=== PATIENT | female | born 1960 ===

== ENCOUNTER 2017-07-28 00:35 | Inpatient (IN) | payer BC ==
[2017-07-27 14:54] LABS: INR 0.94
[2017-07-28] VITALS (12 sets, daily range): BP systolic 101–153; BP diastolic 49–79
[~2017-07-28] VITALS: Ht 166.4 cm; Wt 76.2 kg
[~2017-07-28 00:35] MED LIST: ASPI-757 PO; ATOR10TA65 PO; CELE-1 PO; DIA5 PO; HYDR-318 PO; IBUP800T37 PO; LEVO50TA86 PO; OXYC-823 PO; SERT-1 PO; TRAM-420 PO; TRAM-627 PO
--- NOTE | 2017-07-28 04:08 | LEVENE H&P ---
DATE OF ADMISSION: July 28, 2017 IDENTIFICATION/CHIEF COMPLAINT The patient is a 57-year-old woman with a chief complaint of right knee pain. HISTORY OF PRESENT ILLNESS The patient has a longstanding history of knee arthrosis that has become progressively painful and debilitating and refractory to conservative care. Surgery is indicated to relieve symptoms after failure of nonoperative measures. PAST MEDICAL HISTORY * Hypothyroidism. * Depression. PAST SURGICAL HISTORY Hip replacement operation. ALLERGIES She has no true drug allergies, but codeine causes nausea. CURRENT MEDICATIONS * Zoloft 50 mg p.o. daily. * Levothyroxine 50 mcg p.o. daily. * Atorvastatin 20 mg p.o. daily. * Various vitamins. FAMILY HISTORY Mother with heart disease and father with peripheral arterial disease. SOCIAL HISTORY Negative for tobacco and alcohol use. REVIEW OF SYSTEMS Otherwise negative. PHYSICAL EXAMINATION GENERAL: This is a well-developed, well-nourished female who appears stated age. HEENT: Normocephalic, atraumatic. NECK: Supple. LUNGS: Clear. HEART: Regular. ABDOMEN: Soft. ORTHOPEDIC EXAMINATION The right knee has an effusion present and is stiff at the end of range of motion. Gross stability is good. Extensor function is intact. Skin is in good condition. DIAGNOSTIC DATA Radiographs demonstrate end-stage knee arthritis. ASSESSMENT Right knee degenerative joint disease, progressively painful and refractory to conservative care. PLAN Per patient request, we are going to proceed with total knee arthroplasty. The nature of the procedure, the risks, benefits, the anticipated rehabilitative course were reviewed. Risks include, but are not limited to, , major medical or anesthetic complication, infection, neurovascular injury, blood transfusion, stiffness, scarring, fracture, tendon rupture, instability, implant loosening, migration or failure, persistent or recurrent pain or symptoms, need for additional surgery and other unforeseen. She understands and wishes to proceed. A signed permit is placed in the chart. No guarantees are given or implied. HOLLIE
[2017-07-28] MEDS: NORMOSOL R SOLN(*) 1000 ML BAG 1,000 ML IV PRN ×3 (07:41→09:48)
[2017-07-28] MEDS ORDERED: TRANEXAMIC AC 1000 MG/10ML SDV 1,000 MG in DEXTROSE 5% 50 ML BAG 50 ML IV ONE (09:15)
[2017-07-28] MEDS ORDERED: FAMOTIDINE 20 MG TAB PO ONE (09:15)
[2017-07-28] MEDS ORDERED: MIDAZOLAM 2 MG/2 ML VIAL IVP PRN (09:15)
[2017-07-28] MEDS ORDERED: ceFAZolin(*) 2GM/D5W 50ML 50 ML IVPB ONE (09:15)
[2017-07-28] MEDS ORDERED: cloNIDine EPIDUR INJ 100MCG/ML 40 MCG, ROPIVACAINE 0.5% 20 ML VIAL 25 ML, EPINEPHrine H... INJ ONE (09:15)
[2017-07-28] MEDS ORDERED: LIDOCAINE/SOD BICARB 8.4% SYR ID ONE (09:15)
[2017-07-28] MEDS ORDERED: fentaNYL CITR 100 MCG/2 ML AMP ONE (09:35)
[2017-07-28] MEDS ORDERED: LIDOCAINE MPF 1% 5 ML VIAL ONE (09:37)
[2017-07-28] MEDS ORDERED: ONDANSETRON 4 MG/2 ML VIAL ONE (09:37)
[2017-07-28] MEDS ORDERED: DEXAMETHASONE SOD PHOS 10MG/ML ONE (09:37)
[2017-07-28] MEDS ORDERED: ROCURONIUM BROM 10 MG/ML 10 ML ONE (09:37)
[2017-07-28] MEDS ORDERED: PROPOFOL EMUL(*) 10MG/ML 20 ML 20 ML ONE (09:37)
[2017-07-28] MEDS ORDERED: MORPHINE PF 5 MG/10 ML AMP ONE (09:41)
[2017-07-28] MEDS ORDERED: PHENYLEPHRINE/NS/PF 0.4MG/10ML ONE (10:20)
[2017-07-28] MEDS ORDERED: NS(*) 0.9% 100 ML BAG 100 ML ONE (10:22)
[2017-07-28] MEDS ORDERED: LACTATED RINGER 3000 ML BAG IR ONE (11:30)
[2017-07-28] MEDS ORDERED: diphenhydrAMINE 25 MG CAP PO PRN ×2 (12:35)
[2017-07-28] MEDS ORDERED: NORMOSOL R SOLN(*) 1000 ML BAG 1,000 ML IV PRN (12:35)
[2017-07-28] MEDS ORDERED: MAGNESIUM HYDROXIDE* 30ML UDCP PO PRN (12:35)
[2017-07-28] MEDS ORDERED: BENZOCAINE/MENTHOL 1 EACH LOZG PO PRN (12:35)
[2017-07-28] MEDS ORDERED: NALOXONE HCL 0.4 MG/ML VIAL IVP PRN (12:35)
[2017-07-28] MEDS ORDERED: FLUSH 10 ML SYR IVP PRN (12:35)
[2017-07-28] MEDS ORDERED: BISACODYL 10 MG SUPP PR PRN (12:35)
[2017-07-28] MEDS ORDERED: ZOLPIDEM TARTRATE 5 MG TAB PO PRN (12:35)
[2017-07-28] MEDS ORDERED: NALBUPHINE HCL 10 MG/ML AMP IVP PRN ×2 (12:35→12:50)
[2017-07-28] MEDS ORDERED: ONDANSETRON 4 MG/2 ML VIAL IVP PRN (12:35)
[2017-07-28] MEDS ORDERED: diphenhydrAMINE 50 MG/ML VIAL IVP PRN (12:35)
[2017-07-28] MEDS ORDERED: PROMETHAZINE 25 MG/ML 1 ML AMP IVP PRN (12:35)
[2017-07-28] MEDS ORDERED: ACETAMINOPHEN 325 MG TAB PO PRN (12:35)
[2017-07-28] MEDS ORDERED: METOCLOPRAMIDE 10 MG/2 ML SDV IVP PRN (12:35)
--- NOTE | 2017-07-28 13:05 | RADIOLOGY IMAGING REPORT ---
FACILITY: [facility] [place] PATIENT NAME: Essence Mcmillan : 1960 MR: [id number] V: [id number] EXAM DATE: ORDERING PHYSICIAN: SYMONE GE TECHNOLOGIST: [place] [facility] [place] Essence Mcmillan : 1960 Visit/Account:[id number] Date of Sevice: 07/28/2017 EXAMINATION: Right knee, 2 views 07/28/2017 12:07 PM HISTORY: S/P TKA, CHECK PLACEMENT COMPARISON: None available FINDINGS: Status post right TKA. Femoral and tibial components appear to be well seated and articul ating appropriately. Postoperative soft tissue gas and ventral cutaneous esha. IMPRESSION: Status post right TKA. Report Dictated By: Octavio Oneil MD at 07/28/2017 12:58 PM Report E-Signed By: Octavio Oneil MD at 07/28/2017 1:01 PM WSN:[email or web address]
[2017-07-28] MEDS: APAP/HYDROCODONE 325/7.5 TAB PO PRN ×3 (13:18→22:46)
[2017-07-28] MEDS: DIAZEPAM 5 MG TAB PO PRN ×2 (13:18→19:29)
--- NOTE | 2017-07-28 14:01 | Hospitalist Progress Note ---
Subjective Progress Notes Subjective No cp/sob. 100cc of EBL. 2000cc of crystalloid, TXA, and dexamethasone given intra-op. Physical Exam Vital Signs Date Time Temp Pulse Resp B/P (MAP) Pulse Ox O2 Delivery O2 Flow Rate FiO2 07/28/17 13:00 61 16 97 07/28/17 12:53 98.4 126/61 (82) Nasal Cannula 2.0 Intake and Output 07/29/17 07:00 Intake Total 3150 ml Balance 3150 ml Intake IV Total 3150 ml General Appearance: Alert, Awake Cardiovascular: Regular Rate and Rhythm Respiratory: Clear to Auscultation Extremities: No Edema Assessment and Plan Problems: (1) Status post knee replacement Status: Acute Assessment & Plan: No CV/pulmonary issues. The patient has no history of DVT/ PE. The patient will be on ASA 325 mg a day for 30 days for blood clot prevention. (2) Depression Status: Chronic Assessment & Plan: Continue chronic Zoloft. (3) Hypercholesteremia Status: Chronic Assessment & Plan: Continue chronic atorvastatin. (4) Hypothyroidism Status: Chronic Assessment & Plan: Continue chronic levothyroxine. Problem Qualifiers (1) Status post knee replacement: Laterality: right Qualified Codes: Z96.651 - Presence of right artificial knee joint EDI FAUSTIN MD Jul 28, 2017 14:01
[2017-07-28] MEDS: CELECOXIB 200 MG CAP PO SCH (16:22)
[2017-07-28] MEDS: ceFAZolin 1 GM VIAL IVP SCH (16:23)
[2017-07-28] MEDS ORDERED: ceFAZolin(*) 1 GM VIAL 1 GM in NS(*) 0.9% 100 ML ADDVANT BAG 100 ML IVPB SCH (17:00)
[2017-07-28] MEDS: SERTRALINE HCL 50 MG TAB PO SCH (20:44)
[2017-07-28] MEDS: ATORVASTATIN 10 MG TAB PO SCH (20:44)
[2017-07-29] MEDS: ceFAZolin 1 GM VIAL IVP SCH ×2 (01:25→08:36)
[2017-07-29] MEDS: DIAZEPAM 5 MG TAB PO PRN ×4 (01:25→20:52)
[2017-07-29] MEDS: APAP/HYDROCODONE 325/7.5 TAB PO PRN ×6 (03:07→23:52)
[2017-07-29] MEDS: LEVOTHYROXINE SOD 0.05 MG TAB PO SCH (07:21)
[2017-07-29] MEDS: CELECOXIB 200 MG CAP PO SCH ×2 (07:21→17:37)
[2017-07-29 07:24] VITALS: BP 129/69
--- NOTE | 2017-07-29 07:52 | Hospitalist Progress Note ---
Subjective Progress Notes Subjective No cp/sob. No concerns from patient or staff. Physical Exam Vital Signs Date Time Temp Pulse Resp B/P (MAP) Pulse Ox O2 Delivery O2 Flow Rate FiO2 07/29/17 07:24 98.1 58 16 129/69 (89) 93 Nasal Cannula 1.0 General Appearance: Alert, Awake, No Acute Distress Assessment and Plan Problems: (1) Status post knee replacement Status: Acute Assessment & Plan: No CV/pulmonary issues. The patient has no history of DVT/ PE. The patient will be on ASA 325 mg a day for 30 days for blood clot prevention. (2) Depression Status: Chronic Assessment & Plan: Continue chronic Zoloft. (3) Hypercholesteremia Status: Chronic Assessment & Plan: Continue chronic atorvastatin. (4) Hypothyroidism Status: Chronic Assessment & Plan: Continue chronic levothyroxine. Exam Sepsis Risk: No Definite Risk Problem Qualifiers (1) Status post knee replacement: Laterality: right Qualified Codes: Z96.651 - Presence of right artificial knee joint EDI FAUSTIN MD Jul 29, 2017 07:52
[2017-07-29] MEDS: ASPIRIN 325 MG TAB PO SCH (08:35)
[2017-07-29] MEDS ORDERED: SERTRALINE HCL 50 MG TAB PO SCH (09:00)
[2017-07-29] MEDS ORDERED: ATORVASTATIN 10 MG TAB PO SCH (09:00)
[2017-07-29 11:34] VITALS: BP 106/45
[2017-07-29 15:53] VITALS: BP 104/50
[2017-07-29] MEDS: SERTRALINE HCL 50 MG TAB PO SCH (20:52)
[2017-07-29] MEDS: ATORVASTATIN 10 MG TAB PO SCH (20:52)
[2017-07-29 21:18] VITALS: BP 125/60
[2017-07-30 03:04] VITALS: BP 127/51
[2017-07-30] MEDS: DIAZEPAM 5 MG TAB PO PRN ×4 (03:04→22:03)
[2017-07-30] MEDS: APAP/HYDROCODONE 325/7.5 TAB PO PRN ×5 (04:00→22:16)
[2017-07-30] MEDS: LEVOTHYROXINE SOD 0.05 MG TAB PO SCH (06:30)
[2017-07-30] MEDS ORDERED: DIA5 PO (07:52)
[2017-07-30] MEDS ORDERED: HYDR-4308 PO (07:54)
[2017-07-30] MEDS ORDERED: CELE-1 PO (07:54)
[2017-07-30 07:59] VITALS: BP 116/58
[2017-07-30] MEDS: ASPIRIN 325 MG TAB PO SCH (08:19)
[2017-07-30] MEDS: CELECOXIB 200 MG CAP PO SCH ×2 (08:20→15:50)
--- NOTE | 2017-07-30 08:54 | Hospitalist Progress Note ---
Subjective Progress Notes Subjective She reports doing fairly well. She only c/o surgical site pain. Physical Exam Vital Signs Date Time Temp Pulse Resp B/P (MAP) Pulse Ox O2 Delivery O2 Flow Rate FiO2 07/30/17 07:59 97.8 70 16 116/58 (77) 88 Room Air 07/30/17 03:04 0.5 General Appearance: Alert, Awake Cardiovascular: Regular Rate and Rhythm Respiratory: Clear to Auscultation Assessment and Plan Problems: (1) Status post knee replacement Status: Acute Assessment & Plan: The patient has no history of DVT/PE. She will be on ASA 325 mg a day for 30 days for blood clot prevention. She does have some mild post -op hypoxia. She will work with IS and mobility, but may need home O2 temporarily. (2) Depression Status: Chronic Assessment & Plan: Continue chronic Zoloft. (3) Hypercholesteremia Status: Chronic Assessment & Plan: Continue chronic atorvastatin. (4) Hypothyroidism Status: Chronic Assessment & Plan: Continue chronic levothyroxine. Exam Sepsis Risk: No Definite Risk Problem Qualifiers (1) Status post knee replacement: Laterality: right Qualified Codes: Z96.651 - Presence of right artificial knee joint JAY WILLIAM MD Jul 30, 2017 08:54
[2017-07-30] MEDS ORDERED: ASPI-757 PO (08:55)
[2017-07-30 10:21] VITALS: Ht 166.4 cm; Wt 76.2 kg
[2017-07-30 15:23] VITALS: BP 112/54
[2017-07-30 19:13] VITALS: BP 118/55
[2017-07-30] MEDS ORDERED: CALCIUM CARBONATE 500 MG CHEW PO PRN (19:30)
[2017-07-30] MEDS: SERTRALINE HCL 50 MG TAB PO SCH (20:06)
[2017-07-30] MEDS: ATORVASTATIN 10 MG TAB PO SCH (20:06)
[2017-07-31] MEDS: APAP/HYDROCODONE 325/7.5 TAB PO PRN ×2 (02:20→07:49)
[2017-07-31 04:17] VITALS: BP 122/51
[2017-07-31] MEDS: DIAZEPAM 5 MG TAB PO PRN (04:20)
[2017-07-31] MEDS: LEVOTHYROXINE SOD 0.05 MG TAB PO SCH (07:48)
[2017-07-31] MEDS: CELECOXIB 200 MG CAP PO SCH (07:48)
[2017-07-31] MEDS: ASPIRIN 325 MG TAB PO SCH (07:49)
--- NOTE | 2017-07-31 08:02 | Hospitalist Progress Note ---
Subjective Progress Notes Subjective No cp/sob. Physical Exam Vital Signs Date Time Temp Pulse Resp B/P (MAP) Pulse Ox O2 Delivery O2 Flow Rate FiO2 07/31/17 04:17 99.4 80 20 122/51 (74) 92 Nasal Cannula 0.5 General Appearance: Alert, Awake, No Acute Distress Assessment and Plan Problems: (1) Status post knee replacement Status: Acute Assessment & Plan: The patient has no history of DVT/PE. She will be on ASA 325 mg a day for 30 days for blood clot prevention. (2) Hypoxia Status: Acute Assessment & Plan: There is low clinical suspicion for PE or pneumonia. It is because of [place]'s high elevation, narcotic use and recent surgery. If the patient goes home on O2, then the patient will follow up the PCP to check a room air saturation in a couple of days. (3) Depression Status: Chronic Assessment & Plan: Continue chronic Zoloft. (4) Hypercholesteremia Status: Chronic Assessment & Plan: Continue chronic atorvastatin. (5) Hypothyroidism Status: Chronic Assessment & Plan: Continue chronic levothyroxine. Exam Sepsis Risk: No Definite Risk Problem Qualifiers (1) Status post knee replacement: Laterality: right Qualified Codes: Z96.651 - Presence of right artificial knee joint EDI FAUSTIN MD Jul 31, 2017 08:02
[2017-07-31 08:24] VITALS: BP 125/78
--- NOTE | 2017-08-11 19:03 | DISCHARGE SUMMARY ---
REASON FOR ADMISSION Patient with painful knee arthritis, seen for knee replacement. HOSPITAL COURSE Patient was taken to the operating room on the day of admission and undergoes uncomplicated right total knee arthroplasty. Postoperatively the course was unremarkable. She was maintained on IV antibiotics for 24 hours, has DVT prophylaxis with aspirin and ABIs. She is mobilized by Therapy and makes good progress. At the time of discharge she is cleared by Therapy with improved mobility. Her wound condition is benign. She is comfortable on p.o. pain medication. She is voiding and stooling normally. DISPOSITION Discharged home. FOLLOWUP Followup by Dr. Minor in one week. DISCHARGE MEDICATIONS 1. Include preop home meds in the usual dose. 2. Aspirin 325 p.o. q.day times one month for DVT prophylaxis. 3. Hydrocodone for pain. DIET Ad davin. CONDITION ON DISCHARGE Stable. DISCHARGE INSTRUCTIONS Outpatient rehab per protocol. CPM four hours per day. Increase motion as tolerated. Daily dry sterile dressing change. Okay to shower, no submersion of the wound. Call immediately if fever, chills, wound problems, uncontrolled pain or other concerns. HOLLIE
== END 2017-07-31 09:05 | disposition home or self-care (01) | DRG 470 ==
LOC: OR 00:35 → MED 13:00
PROVIDERS: ADMIT Orthopaedic Surgery; ATTEND Orthopaedic Surgery
PROC: 0SRC0J9 Replacement of Right Knee Joint with Synthetic Substitute, Cemented, Open Approach (ICD-10-PCS; principal; 2017-07-28 09:48)
DX: M17.11 Unilateral primary osteoarthritis, right knee (principal); M21.061 Valgus deformity, not elsewhere classified, right knee; E03.9 Hypothyroidism, unspecified; F32.9 Major depressive disorder, single episode, unspecified; E78.00 Pure hypercholesterolemia, unspecified; R09.02 Hypoxemia; Y83.8 Other surgical procedures as the cause of abnormal reaction of the patient, or of later complication, without mention of misadventure at the time of the procedure; Y79.3 Surgical instruments, materials and orthopedic devices (including sutures) associated with adverse incidents; Y92.230 Patient room in hospital as the place of occurrence of the external cause; T70.20XA Unspecified effects of high altitude, initial encounter; T40.605A Adverse effect of unspecified narcotics, initial encounter; Z96.642 Presence of left artificial hip joint; Z87.891 Personal history of nicotine dependence
CPT/HCPCS: 36415; 85610; 86850; 86900; 86901; 97161; C1713; C1776; J0171; J0690; J0735; J1100; J1885; J2001; J2270; J2370; J2405; J2704; J2795; J3010; J7050; J7060; Q0163